=== PATIENT | female | born 1995 | race Caucasian/White ===

== ENCOUNTER 2018-02-06 08:40 | Emergency (ER) | payer OTHER ==
--- NOTE | 2018-02-06 08:53 | EDPHY ---
H & P Stated Complaint: st/fever seen at dexamethasone and toradol given Time Seen by Provider: 02/06/18 08:52 HPI/ROS: HPI: This is a 22-year-old female who presents with Chief Complaint: st/fever seen at dexamethasone and toradol given Location: Throat Quality: Sore Duration: 3 days Signs and Symptoms: no fever, no nausea, no vomiting, no diarrhea, no urinary symptoms, no chest pain, no shortness of breath, no wheezing, no cough, no neck stiffness, no joint pain, no swollen glands, no ear pain, no rash, + fatigue, + body aches Timing: Rapid onset Severity: Moderate Context: Patient presents with 3 day history, since Wednesday, of body aches, fatigue, subjective fever and sore throat. She complains that her 1st symptom was a sore throat. She reports that she has been drinking fluids but appetite is significantly decreased. Notes some pain with swallowing and increased phlegm. She was diagnosed 3 weeks ago at [facility] with mononucleosis. Patient reports that she was starting to feel better until this Wednesday. She went to urgent care this morning who performed a rapid strep test and per patient was negative, given liquid Decadron 8 mg and IM Toradol 30 mg. She was then sent to the emergency room for further evaluation. Takes extended control. Denies muffled voice/drooling/inability to swallow. Modifying Factors: See Comment: ROS: see HPI Constitutional: + fever, no chills, no weight loss Eyes: No blurred vision Respiratory: No shortness of breath, no cough Cardiovascular: No chest pain, no palpitations Gastrointestinal: No nausea, no vomiting, no diarrhea, no hematemesis, no blood in stool Genitourinary: No dysuria, no blood in urine Extremities: No myalgias, no edema Neurologic: No weakness, no numbness Skin: No rashes, no petechiae Hematologic: No bruising, no bleeding MEDICAL/SURGICAL/SOCIAL HISTORY: Medical history: Generally healthy. Does not take any regular medications. Surgical history: [place] teeth removal Social history: Student at [employer]. Family history noncontributory. CONSTITUTIONAL: Ill but nontoxic-appearing young adult white female, significant other at bedside, awake and alert, no obvious distress HEENT: Atraumatic and normocephalic, PERRL, EOMI. Nares patent; no rhinorrhea; no nasal mucosal edema. Tympanic membranes clear. Oropharynx clear, tonsils 2 + hypertrophy; moderate erythema; white exudate; uvula midline and dry oral mucosa. Airway patent. + anterior cervical lymphadenopathy. No meningismus. Cardiovascular: Normal S1/S2, tachycardia, regular rhythm, without murmur rub or gallop. PULMONARY/CHEST: Symmetrical and nontender. Clear to auscultation bilaterally. Good air movement. No accessory muscle usage. ABDOMEN: Soft, nondistended, nontender, no rebound, no guarding, no peritoneal signs, no masses or organomegaly. No CVAT. EXTREMITIES: 2/2 pulses, strength 5/5, no deformities, no clubbing, no cyanosis or edema. NEUROLOGICAL: no focal neuro deficits. GCS 15. SKIN: Warm and dry, no erythema. no rash. Good capillary refill. Source: Patient Exam Limitations: No limitations - Personal History LMP (Females 10-55): Extended Cycle BCP/Inj Current Tetanus Diphtheria and Acellular Pertussis (TDAP): Yes - Medical/Surgical History Hx Asthma: No Hx Chronic Respiratory Disease: No Hx Diabetes: No Hx Cardiac Disease: No Hx Renal Disease: No Hx Cirrhosis: No Hx Alcoholism: No Hx HIV/AIDS: No Hx Splenectomy or Spleen Trauma: No Other PMH: mono - Social History Smoking Status: Never smoked Constitutional: Initial Vital Signs Temperature (C) 38.1 C 02/06/18 08:45 Heart Rate 128 H 02/06/18 08:45 Respiratory Rate 20 02/06/18 08:45 Blood Pressure 125/90 H 02/06/18 08:45 O2 Sat (%) 96 02/06/18 08:45 O2 Delivery Mode Room Air Allergies/Adverse Reactions: No Known Allergies Allergy (Unverified 02/06/18 08:43) Home Medications: Medication Instructions Recorded Amoxicillin [AMOXICILLIN] 500 mg PO TID 10 Days tab.chew 02/06/18 DEXAMETHASONE 02/06/18 Toradol 30 mg/ml Inj (*) 02/06/18 predniSONE [predniSONE TAPER] 10 mg PO DAILY 6 Days ea 02/06/18 Medical Decision Making ED Course/Re-evaluation: Vital signs reviewed upon arrival; afebrile with tachycardia. Given 2 L normal saline, p.o. Viscous lidocaine, p.o. Percocet Influenza and strep test ordered No signs of meningitis/tonsillar abscess/Sanjeev's angina/airway compromise Rapid strep is negative. Modified Centor score=4; antibiotics are recommended. Given Rx chewable Amoxicillin x 10 days and prednisone taper 1000: Reassessed patient who is drinking fluids at bedside and reports that she is feeling better. Heart rate now in the 90s. School note provided. This patient was seen under the supervision of my secondary supervising physician. I evaluated care for this patient independently. Differential Diagnosis: Differential diagnosis includes but is not limited to strep pharyngitis, infectious mononucleosis, tonsillar abscess, dehydration, influenza. - Data Points Laboratory Results: 02/06/18 02/06/18 02/06/18 Unknown 09:40 09:08 Nasal Influenza A PCR Pending Cancelled Nasal Influenza B PCR Pending Cancelled Group A Strep Screen NEGATIVE (NEGATIVE) Group A Strep DNA Pending Medications Given: Discontinued Medications Sodium Chloride (Ns) 1,000 mls @ 0 mls/hr IV EDNOW ONE; Wide Open PRN Reason: Protocol Stop: 02/06/18 09:10 Last Admin: 02/06/18 09:20 Dose: 1,000 mls Sodium Chloride (Ns) 1,000 mls @ 0 mls/hr IV EDNOW ONE; Wide Open PRN Reason: Protocol Stop: 02/06/18 09:10 Last Admin: 02/06/18 09:20 Dose: 1,000 mls Lidocaine (Lidocaine 2% Viscous) 15 ml PO EDNOW ONE Stop: 02/06/18 09:10 Last Admin: 02/06/18 09:19 Dose: 15 ml Oxycodone/Acetaminophen (Percocet 5/325) 1 tab PO EDNOW ONE Stop: 02/06/18 09:11 Last Admin: 02/06/18 09:20 Dose: 1 tab Departure - Departure Disposition: Home, Routine, Self-Care Clinical Impression: Strep tonsillitis Condition: Good Instructions: Strep Throat (ED), Tonsillitis (ED) Additional Instructions: Consume a minimum of 8-10 glasses of water or electrolyte fluid replacement drinks that include Gatorade, Powerade, Pedialyte. Urine able to eat or drink liquids; consume popsicles. Eat a bland diet for the next 48 hours and then slowly advance as tolerated. Take Amoxicillin chewable tablets 3 times a day times 10 days. Take Prednisone taper to decrease inflammation. Take Tylenol 650 mg every 4 hours and/or Ibuprofen 600 mg every 8 hours with food as needed for pain/fever/headache. Follow-up with [facility] on Wednesday. Return to the ER immediately if you experience fevers/chills, shortness of breath, abdominal pain, inability to tolerate oral intake, or any other symptoms that concern you. Referrals: [facility] [Other] - As per Instructions [facility],. [Clinic] - As per Instructions Stand Alone Forms: School Excuse Prescriptions: Amoxicillin [AMOXICILLIN] 500 mg PO TID 10 Days tab.chew predniSONE [predniSONE TAPER] 10 mg PO DAILY 6 Days ea
[2018-02-06] MEDS ORDERED: LIDOCAINE 2% VISCOUS 15 ML UDCUP PO ONE (09:09)
[2018-02-06] MEDS ORDERED: NS 1,000 ML IV ONE ×2 (09:09)
[2018-02-06] MEDS ORDERED: OXYCODONE/APAP 5/325 TAB PO ONE (09:10)
[2018-02-06 10:34] VITALS: BP 115/86
== END 2018-02-06 10:33 | disposition home or self-care (01) ==
DX: J03.00 Acute streptococcal tonsillitis, unspecified (principal); E86.9 Volume depletion, unspecified